=== PATIENT | female | born 1960 | race Two or more races ===

== ENCOUNTER 2017-01-12 07:45 | Day surgery (SDC) | payer BC ==
[2017-01-12] MEDS ORDERED: PROPOFOL 200 MG/20 ML BOTTLE IV ONE (07:46)
[2017-01-12] MEDS ORDERED: SEVOFLURANE 250 ML BOTTLE IH ONE (07:46)
[2017-01-12] MEDS ORDERED: IV LACTATED RINGERS SOLUTION 1,000 ML BAG MC ONE (07:46)
[2017-01-12] MEDS ORDERED: ONDANSETRON 4 MG/2 ML VIAL IV ONE (07:46)
[2017-01-12] MEDS ORDERED: DEXAMETHASONE SOD PHOSPHATE 4 MG INJ IV ONE (07:46)
[2017-01-12] MEDS ORDERED: CEFAZOLIN 1 G VIAL MC ONE (07:46)
[2017-01-12] MEDS ORDERED: KETOROLAC TROMETHAMINE 30 MG INJ IM ONE (07:46)
[2017-01-12] MEDS ORDERED: LIDOCAINE HCL 2% 20 ML VIAL MC ONE (07:46)
[2017-01-12] MEDS ORDERED: BUPIVACAINE 0.25% 30 ML VIAL ONE (08:40)
[2017-01-12] MEDS ORDERED: BUPIVACAINE/EPI PF 0.25% 30 ML VIAL ONE (08:41)
[2017-01-12] MEDS ORDERED: MORPHINE SULFATE PF 10 MG/10 ML AMPUL IV ONE (08:41)
[2017-01-12] MEDS ORDERED: FENTANYL CITRATE 100 MCG/2 ML AMPUL ONE ×2 (10:29→11:39)
[2017-01-12] MEDS ORDERED: HYDROCODONE/APAP 5-325MG TABLET ONE (12:35)
== END 2017-01-12 13:17 | disposition home or self-care (01) ==
LOC: DS 07:45
PROVIDERS: ATTEND Orthopaedic Surgery
DX: M23.204 Derangement of unspecified medial meniscus due to old tear or injury, left knee (principal); M65.9 Synovitis and tenosynovitis, unspecified; M94.262 Chondromalacia, left knee; M19.042 Primary osteoarthritis, left hand; M19.041 Primary osteoarthritis, right hand; F41.9 Anxiety disorder, unspecified; Z98.890 Other specified postprocedural states
CPT/HCPCS: A4663; J0690; J1100; J1885; J2274; J2405; J3010; J3490; J7120